=== PATIENT | female | born 1995 | race Caucasian/White ===

== ENCOUNTER 2024-10-26 09:59 | Inpatient (IN) ==
[2024-10-26] MEDS ORDERED: LIDOCAINE 1% LOCAL 20 ML VIAL INFIL PRN (13:17)
[2024-10-26] MEDS: LACTATED RINGER'S 1,000 ML IV PRN (13:25)
--- NOTE | 2024-10-26 13:50 | Anesthesiology Consultation ---
Date of Service October 26, 2024 Assessment & Plan ASA ASA2 Proposed Anesthesia Anesthesia Type: Labor Epidural Risk / Benefits Reviewed With: PT / POA / Parent / Guardian, Accepts Plan and Informed Consent Obtained History Height/Weight Height: 5 ft 6 in Weight: 87.09 kg Allergies Allergy/AdvReac Type Severity Reaction Status Date / Time No Known Allergies Allergy Verified 10/26/24 10:29 Medications Home Medications Medication Instructions Recorded Confirmed Last Taken prenat.vits,traci,[id number] 1 tab PO DAILY 03/18/24 10/26/24 10/25/24 12:00 famotidine 20 mg tablet (Pepcid) 20 mg PO BID 10/26/24 10/26/24 10/25/24 20:00 Active Medications Generic Name Dose Route Start Last Admin Trade Name Freq PRN Reason Stop Dose Admin Lactated Ringer's 1,000 mls @ 125 mls/hr 10/26/24 13:17 10/26/24 13:25 Lr IV 10/27/24 13:16 999 mls/hr .Q8H PRN Administration L&D Protocol Protocol Past Medical History Medical History No significant past medical history Exercise / Class Metabolic Activity II 4-5 Yardwork/Stairs/Walk up hill Past Family History Family History Mother Depression Anxiety Father Hypertension Brother No problems noted. Other Breast cancer Denies family history of Colon cancer Ovarian cancer Prostate cancer Myocardial infarction Past Surgical History Surgical History S/P correction of deviated nasal septum [place] teeth removed S/P T&A (status post tonsillectomy and adenoidectomy) Past Anesthesia History No Hx of Anesthesia Complications and No Family Hx of Anesthesia Complications History of PONV No Hx of PONV and No Hx of Motion Sickness Social History Smoking Status: Never smoker Do You Dip or Chew Tobacco: No Hx Alcohol Use: No Alcohol type: wine Hx Substance Use: No Review of Systems denies fever/cough/ colds/ chest pain/ SOB/ ROBERTO denies ROBERTO Physical Exam Vital Signs Last Vital Signs Temp 36.8 C 10/26/24 10:11 Pulse 77 10/26/24 14:44 Resp 20 10/26/24 10:11 BP 118/66 10/26/24 14:27 Pulse Ox 100 10/26/24 14:44 ENMT Mouth: no TMJ abnormality and no dentition abnormality Thyromental Distance: > or= 3.5 Finger Breadths Mallampati Class: II Neck neck extension not limited Respiratory normal respiratory effort; no respiratory distress Auscultation: lungs clear to auscultation bilaterally Cardiovascular Rate/Rhythm: regular rate and regular rhythm Neurologic moves all extremities Psychiatric Orientation: alert and oriented x 3 Testing Laboratory Results 10/26/24 13:52
[2024-10-26] MEDS: fentaNYL citrate PF 100 MCG/2 ML VIAL ONE (14:08)
[2024-10-26] MEDS: LIDOCAINE 2%/EPINEPHRINE 1:200,000 20 ML PF ONE (14:08)
[2024-10-26] MEDS: BUPIVACAINE 0.25% PF 30 ML VIAL ONE (14:09)
[2024-10-26] MEDS: fentANYL 2 MCG/ML BUPIVacaine 0.125%-NSS 100ML BAG ONE (14:09)
[2024-10-26 14:25] LABS: Hematocrit (blood only) 36.2 % (37.0-47.0); Hemoglobin 12.7 g/dl (12.0-16.0); Mean Corpuscular Hemoglobin 31.7 pg (25.0-34.0); Mean Corpuscular Hgb Conc 35.1 g/dL (32.0-36.0); Mean Corpuscular Volume 90.3 fL (80.0-100.0); Mean Platelet Volume 11.1 fL (9.4-12.4); Platelet Count 149 K/uL (130-400); RDW Coefficient of Variation 12.9 % (11.5-14.5); RDW Standard Deviation 42.2 fL (36.4-46.3); Red Blood Count 4.01 M/uL (4.20-5.40); White Blood Count 10.84 K/ul (4.8-10.8)
--- NOTE | 2024-10-26 15:06 | History & Physical Report ---
Date of Service October 26, 2024 Assessment & Plan (1) Normal labor and delivery: Plan: Mila is a 28-year-old currently at 38 weeks 6 days gestational age presents in active labor. Category 1 tracing noted. Vitals within normal limits. GBS negative. (2) Supervision of normal intrauterine in primigravida: History of Present Illness Primary Care Provider: James Foley III, ASA Mila is a 28-year-old currently at 38 weeks 6 days gestational age presents in active labor. Denies leakage of fluid or vaginal bleeding and noting normal movement. has been uncomplicated to date Allergies Allergy/AdvReac Type Severity Reaction Status Date / Time No Known Allergies Allergy Verified 10/26/24 10:29 Home Medications Medication Instructions Recorded Confirmed Type prenat.vits,traci,[id number] 1 tab PO DAILY 03/18/24 10/26/24 History famotidine 20 mg tablet (Pepcid) 20 mg PO BID 10/26/24 10/26/24 History Patient History Medical History No significant past medical history Surgical History S/P correction of deviated nasal septum [place] teeth removed S/P T&A (status post tonsillectomy and adenoidectomy) Family History Mother Depression Anxiety Father Hypertension Brother No problems noted. Other Breast cancer Denies family history of Colon cancer Ovarian cancer Prostate cancer Myocardial infarction Social History (Updated 03/18/24 @ 10:55 by Taylor Russell) Smoking Status: Never smoker Second Hand Exposure: No; Do You Dip or Chew Tobacco: No; Hx Alcohol Use: No Hx Substance Use: No Preferred Language: Syriac Communication Ability: Effective Visual Impairment: No Limitations Hearing Ability: Normal Band Director Required: No Beliefs That Will Affect Care: None marital status: marital status details: Davide (31) [phone] or [phone] Current Living Situation: Spouse Current Living Situation Comment: lives with spouse, 1 dog. 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 @ [employer] How many Children do You have: 0 Other Information That Helps Us Care for You: No Feels Safe at Home: Yes Safety Concerns: Feels Safe At This Time Childhood Exposure to Second-Hand Smoke: No Diet: regular Dental Care, Regularly: Yes Physical Activity Frequency: Daily Seatbelt Use: always Sunscreen Use: Yes Assistive Devices: None Physical Exam Genitourinary: normal external appearance Manual OB Exam: + cervical dilation 8 cm, + cervical effacement 100%, + station + 1 and + amniotic fluid (AROM) clear OB Exam Monitor Tracing: + external FHT monitor used, + external uterine monitor used, + category I and + normal FHT variability Results & Data Vital Signs (Past 12 Hours) Vital Signs Temp Pulse Resp BP Pulse Ox 10/26/24 14:59 100 10/26/24 14:59 86 10/26/24 14:54 97 10/26/24 14:54 87 10/26/24 14:49 95 10/26/24 14:49 86 10/26/24 14:47 70 10/26/24 14:47 119/76 10/26/24 14:44 100 10/26/24 14:44 77 10/26/24 14:39 99 10/26/24 14:39 74 10/26/24 14:34 97 10/26/24 14:34 81 10/26/24 14:29 100 10/26/24 14:29 73 10/26/24 14:27 68 10/26/24 14:27 118/66 10/26/24 14:24 100 10/26/24 14:24 71 10/26/24 14:23 72 10/26/24 14:23 125/73 10/26/24 14:19 99 10/26/24 14:19 73 10/26/24 14:16 63 10/26/24 14:16 118/67 10/26/24 14:14 99 10/26/24 14:14 64 10/26/24 14:14 124/67 10/26/24 14:12 75 10/26/24 14:12 132/73 10/26/24 14:10 74 10/26/24 14:10 127/73 10/26/24 14:09 98 10/26/24 14:09 69 10/26/24 14:08 57 L 10/26/24 14:08 121/64 10/26/24 14:07 72 10/26/24 14:07 146/74 H 10/26/24 14:04 55 L 10/26/24 14:04 131/67 10/26/24 14:04 98 10/26/24 14:04 61 10/26/24 13:45 68 10/26/24 13:45 109/53 L 10/26/24 10:11 36.8 C 20 10/26/24 10:07 77 122/81 Coding Level of Care Code None Diagnoses Normal labor and delivery O80 Encounter for supervision of normal first in third trimester Z34.03 Trimester: third trimester (2) Supervision of normal intrauterine in primigravida Trimester: third trimester Qualified Code(s): Z34.03 - Encounter for supe rvision of normal first , third trimester
[2024-10-26] MEDS: SODIUM CHLORIDE 0.9% PF INJ 10 ML VIAL ONE (15:18)
[2024-10-26] MEDS: OXYTOCIN 30 UNITS/NSS 30 UNITS/500 ML BAG IV PRN (19:45)
[2024-10-26] MEDS ORDERED: bisacodyL 10 MG SUPP PR PRN (19:58)
[2024-10-26] MEDS ORDERED: OXYTOCIN 30 UNITS/NSS 30 UNITS/500 ML BAG IV PRN (19:58)
[2024-10-26] MEDS ORDERED: HYDROCORTISONE ACETATE 25 MG SUPP PR PRN (19:58)
--- NOTE | 2024-10-26 20:01 | Delivery Summary ---
Vaginal Delivery Summary Date of Service October 26, 2024 Vaginal Delivery Summary and 1st Degree LAC Patient progressed to 10 cm dilated, 100% effaced, +2 station push intact perineum with epidural anesthesia and delivered a viable male with weight and Apgars pending. Head the delivered without difficulty quickly followed by shoulders and body. was noted to be vigorous upon delivery and a 1 minute delayed cord clamping was initiated. Cord was then double clamped and cut remained on maternal abdomen. Cord blood obtained and attention turned to delivery of placenta which delivered intact three-vessel cord with gentle cord traction. Inspection of perineum vagina and cervix was noted to be a lateral periurethral lacerations which were repaired with 4-0 Vicryl continuous running stitch. Needle sponge and instrument counts were correct at the completion of the case. Both mother and stable in the immediate postdelivery timeframe. No complications noted and blood loss per QBL in chart [facility] Vaginal Delivery Charge Delivery Type Details: and 1st Degree LAC
[2024-10-26] MEDS: BENZOCAINE 20% SPRY 85 APPLN/85 GM CAN EXT PRN (20:14)
[2024-10-26] MEDS: ePHEDrine sulfate 50 MG/ML AMP ONE (20:15)
[2024-10-26] MEDS: IBUPROFEN 600 MG TAB PO PRN (20:15)
--- NOTE | 2024-10-26 20:50 | Anesthesia Procedure Note ---
Date of Service October 26, 2024 Anesthesia Post Epidural Note Vital Signs Vital Signs: Temp Pulse Resp BP Pulse Ox 37.4 C 70 16 107/60 97 10/26/24 19:32 10/26/24 20:44 10/26/24 20:25 10/26/24 20:44 10/26/24 19:54 Pain Intensity Bilateral Abdomen: Pain Intensity: 0 Head: Pain Intensity: 7 Notes Mental Status: alert / awake / arousable and participated in evaluation Nausea / Vomiting: adequately controlled Pain: adequately controlled Airway Patency, RR, SpO2: stable & adequate BP & HR: stable & adequate Hydration State: stable & adequate Neuraxial Anesthesia: was administered and sensory block resolved Anesthetic Complications: no major complications apparent and Pt Satisfied with anesthetic care Epidural: Removed without complications and With tip intact
[2024-10-26] MEDS: DIPHTHER/TETAN/PERTUS Vaccine (Tdap, Adol/Adult) 0.5mL IM ONE (20:58)
[2024-10-26] MEDS: DOCUSATE SODIUM 100 MG CAP PO SCH (20:58)
[2024-10-27] MEDS: ACETAMINOPHEN 325 MG TAB PO PRN (01:59)
--- NOTE | 2024-10-27 07:30 | Obstetrical Progress Note ---
Date of Service <Jackie Avalos MD - Last Filed: 10/27/24 08:11> October 27, 2024 Assessment & Plan <Jackie Avalos MD - Last Filed: 10/27/24 08:11> (1) care and examination: Plan PPD1 s/p at 38 6/7 wga: Stable. Rh+, gbs neg, ri, VSS Continue routine care, OOB and ambulation, diet as tolerated <Polo Martin MD - Last Filed: 10/28/24 15:57> (1) care and examination: Subjective <Jackie Avalos MD - Last Filed: 10/27/24 08:11> Patient is a 28yo who is PPD#1 following at 38 6/7 weeks. Abd pain/cramping minimal, well managed on analgesics Voiding w/o issue Tolerating meals Ambulating normally Lochia minimal, diminishing Planning to breastfeed. Constitutional: no fever, no chills or no sweats Respiratory: no dyspnea Cardiovascular: no chest pain, no palpitations or no calf pain Breast: no breast pain Gastrointestinal: no nausea or no vomiting Genitourinary (female): no dysuria Neurologic: no headache(s) no changes in vision, no headaches Physical Exam <Jackie Avalos MD - Last Filed: 10/27/24 08:11> General: Alert, oriented. No acute distress. Cardiac: Regular rate and rhythm, no murmurs, rubs, or gallops. Respiratory: Clear to auscultation bilaterally. No increased work of breathing. Symmetrical chest rise. No respiratory distress. Abdomen: Soft, nontender, nondistended. Bowel sounds present. Uterus: Uterine fundus firm, nontender. Lower extremities: No lower extremity edema or swelling. No deep calf pain. Results & Data <Jackie Avalos MD - Last Filed: 10/27/24 08:11> Vital Signs (Past 12 Hours) Vital Signs Temp Pulse Pulse Resp BP BP Pulse Ox 10/27/24 04:30 36.4 C L 63 16 122/79 10/26/24 23:45 10/26/24 23:45 36.5 C 61 16 111/68 10/26/24 22:59 72 10/26/24 22:59 103/55 L 10/26/24 22:44 75 10/26/24 22:44 106/55 L 10/26/24 22:29 73 10/26/24 22:29 107/60 10/26/24 22:14 67 10/26/24 22:14 107/58 L 10/26/24 21:59 69 10/26/24 21:59 120/67 10/26/24 21:55 18 10/26/24 21:44 71 10/26/24 21:44 120/71 10/26/24 21:29 74 10/26/24 21:29 111/61 10/26/24 21:25 18 10/26/24 21:14 70 10/26/24 21:14 109/60 10/26/24 20:59 77 10/26/24 20:59 118/70 10/26/24 20:55 18 10/26/24 20:44 70 10/26/24 20:44 107/60 10/26/24 20:40 18 10/26/24 20:29 60 10/26/24 20:29 118/63 10/26/24 20:25 16 10/26/24 20:14 81 10/26/24 20:14 130/79 10/26/24 20:10 18 10/26/24 19:56 68 10/26/24 19:56 131/63 10/26/24 19:55 18 10/26/24 19:54 97 10/26/24 19:54 78 10/26/24 19:49 96 10/26/24 19:49 76 10/26/24 19:48 94 10/26/24 19:48 76 10/26/24 19:44 97 10/26/24 19:44 82 10/26/24 19:39 98 10/26/24 19:39 92 H 10/26/24 19:36 89 L 10/26/24 19:36 89 10/26/24 19:34 97 10/26/24 19:34 79 10/26/24 19:32 16 10/26/24 19:32 37.4 C 16 10/26/24 19:32 75 10/26/24 19:32 131/65 10/26/24 19:31 93 10/26/24 19:31 83 O2 Del Method 10/27/24 04:30 Room Air 10/26/24 23:45 Room Air 10/26/24 23:45 Room Air 10/26/24 22:59 10/26/24 22:59 10/26/24 22:44 10/26/24 22:44 10/26/24 22:29 10/26/24 22:29 10/26/24 22:14 10/26/24 22:14 10/26/24 21:59 10/26/24 21:59 10/26/24 21:55 10/26/24 21:44 10/26/24 21:44 10/26/24 21:29 10/26/24 21:29 10/26/24 21:25 10/26/24 21:14 10/26/24 21:14 10/26/24 20:59 10/26/24 20:59 10/26/24 20:55 10/26/24 20:44 10/26/24 20:44 10/26/24 20:40 10/26/24 20:29 10/26/24 20:29 10/26/24 20:25 10/26/24 20:14 10/26/24 20:14 10/26/24 20:10 10/26/24 19:56 10/26/24 19:56 10/26/24 19:55 10/26/24 19:54 10/26/24 19:54 10/26/24 19:49 10/26/24 19:49 10/26/24 19:48 10/26/24 19:48 10/26/24 19:44 10/26/24 19:44 10/26/24 19:39 10/26/24 19:39 10/26/24 19:36 10/26/24 19:36 10/26/24 19:34 10/26/24 19:34 10/26/24 19:32 10/26/24 19:32 10/26/24 19:32 10/26/24 19:32 10/26/24 19:31 10/26/24 19:31 Supervising Physician <Polo Martin MD - Last Filed: 10/28/24 15:57> Co-Signing Physician Notes Patient seen with resident and agree with the above findings and plan. Routine care Resident Activity Tracking <Anveshi Robbie, MD - Last Filed: 10/27/24 08:11> Resident Involvement: Resident Care Provided Care Provided: Adult Hospital Medicine and OB Delivery
[2024-10-27] MEDS: FERROUS SULFATE 325 MG TAB PO SCH (07:37)
[2024-10-27] MEDS: PRENATAL VITAMIN 1 TAB PO SCH (07:37)
[2024-10-27] MEDS: bisacodyL 5 MG TABEC PO SCH (20:13)
--- NOTE | 2024-10-28 06:31 | Obstetrical Progress Note ---
Date of Service <Jackie Avalos MD - Last Filed: 10/28/24 07:48> October 28, 2024 Assessment & Plan <Jackie Avalos MD - Last Filed: 10/28/24 07:48> (1) care and examination: Plan PPD2 s/p at 38 6/7 wga: Stable. Rh+, gbs neg, ri, VSS Continue routine care, OOB and ambulation, diet as tolerated Plan for DC today <Alva Ellis MD - Last Filed: 10/28/24 07:48> (1) care and examination: Subjective <Jackie Avalos MD - Last Filed: 10/28/24 07:48> Patient is a 28yo who is PPD#2 following at 38 6/7 weeks. Abd pain/cramping minimal, well managed on analgesics Voiding w/o issue Tolerating meals Ambulating normally Lochia minimal, diminishing Planning to breastfeed. Constitutional: no fever, no chills or no sweats Respiratory: no dyspnea Cardiovascular: no chest pain, no palpitations or no calf pain Breast: no breast pain Gastrointestinal: no nausea or no vomiting Genitourinary (female): no dysuria Neurologic: no headache(s) no changes in vision, no headaches Physical Exam <Jackie Avalos MD - Last Filed: 10/28/24 07:48> General: Alert, oriented. No acute distress. Cardiac: Regular rate and rhythm, no murmurs, rubs, or gallops. Respiratory: Clear to auscultation bilaterally. No increased work of breathing. Symmetrical chest rise. No respiratory distress. Abdomen: Soft, nontender, nondistended. Bowel sounds present. Uterus: Uterine fundus firm, nontender, palpable 1cm below the umbilicus. Lower extremities: No lower extremity edema or swelling. No deep calf pain. Results & Data <Jackie Avalos MD - Last Filed: 10/28/24 07:48> Vital Signs (Past 12 Hours) Vital Signs Temp Pulse Resp BP O2 Del Method 10/28/24 02:00 36.4 C L 55 L 18 112/72 Room Air 10/27/24 20:15 36.5 C 59 L 16 123/76 Room Air Supervising Physician <Alva Ellis MD - Last Filed: 10/28/24 07:48> Co-Signing Physician Notes Resident Physician Supervision Note: I interviewed and examined the patient. Discussed with Dr. Jerry and agree with findings and plan as documented in the note. Any exceptions or clarifications are listed here: [ ] Documented By: Alva Ellis MD, FACOG Resident Activity Tracking <Jackie Avalos MD - Last Filed: 10/28/24 07:48> Resident Involvement: Resident Care Provided Care Provided: Adult Hospital Medicine and OB Delivery
[2024-10-28 09:30] VITALS: BP 121/74; PULSE 58; RESP 17; TEMP 98.1; O2SAT 100
== END 2024-10-28 10:30 | disposition home or self-care (01) | DRG 807 ==
LOC: OPB 09:59 → 4S1 10:00 → 4E2 23:37
DX: O71.82 Other specified trauma to perineum and vulva; Z3A.38 38 weeks gestation of pregnancy; Z37.0 Single live birth